=== PATIENT | male | born 1995 | race Two or more races ===

== ENCOUNTER 2017-10-05 01:29 | Emergency (ER) | payer SELFPAY ==
[2017-10-05 01:38] VITALS: BP 139/95
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
== END 2017-10-05 02:12 ==
DX: S60.812A Abrasion of left wrist, initial encounter (principal); F17.200 Nicotine dependence, unspecified, uncomplicated; V49.40XA Driver injured in collision with unspecified motor vehicles in traffic accident, initial encounter; Y92.410 Unspecified street and highway as the place of occurrence of the external cause; Y99.8 Other external cause status; Y93.89 Activity, other specified